=== PATIENT | male | born 1945 | race Caucasian/White ===

== ENCOUNTER → 2021-05-18 | Outpatient (CLI) | payer MEDICARE, OTHER ==
--- NOTE | 2021-05-18 10:27 | Diagnostic Imaging Report ---
Indication: Left knee pain. Time Of Exam: 10:17 AM 3 views of the left knee were obtained. Joint spaces are fairly well maintained. Articular surfaces are smooth. No fracture, dislocation or effusion is seen. IMPRESSION: No acute bony abnormality is detected. Dictated by: Dictated on workstation # [id number]
== END ==
LOC: RAD FS 10:06
PROVIDERS: ATTEND Nurse Practitioner
DX: S72.435D Nondisplaced fracture of medial condyle of left femur, subsequent encounter for closed fracture with routine healing (principal); M23.632 Other spontaneous disruption of medial collateral ligament of left knee; X58.XXXD Exposure to other specified factors, subsequent encounter
CPT/HCPCS: 73562